=== PATIENT | female | born 1990 | race Two or more races ===

== ENCOUNTER 2021-01-05 10:05 | Emergency (ER) | payer OTHER ==
[~2021-01-05] VITALS: Ht 160 cm; Wt 77.1 kg
[2021-01-05] MEDS ORDERED: PEPTO-BISMOL262 MG PO (10:31)
[2021-01-05] MEDS ORDERED: ZOFRAN8 MG PO (17:29)
[2021-01-05] MEDS ORDERED: LEVSIN/SL0.125 MG SL (17:29)
== END 2021-01-05 18:07 | disposition home or self-care (01) ==
LOC: ER 10:05
DX: R10.13 Epigastric pain (principal); R11.2 Nausea with vomiting, unspecified; F41.8 Other specified anxiety disorders